=== PATIENT | male | born 1995 | race Caucasian/White ===

== ENCOUNTER 2022-12-28 15:06 | Emergency (ER) | payer MEDICAID, OTHER ==
[~2022-12-28] VITALS: Ht 185.4 cm; Wt 69.0 kg
[2022-12-28] MEDS ORDERED: SODIUM CHLORIDE 0.9% 1,000 ML IV ONE ×3 (15:15→16:30)
[2022-12-28 16:21] LABS: Basophils # (auto) 0 10 ^3/uL (0-0.2); Basophils % (auto) 0.3 % (0.0-2.0); Eosinophils # (auto) 0 10 ^3/uL (0-0.8); Eosinophils % (auto) 0.1 % (0.0-7.0); Hematocrit 49.6 % (41.0-53.0); Hemoglobin 16.1 g/dL (13.5-17.5); Lymphocytes # (auto) 2.5 10 ^3/uL (0.4-5.4); Lymphocytes % (auto) 18.3 % (10.0-50.0); Mean Corpuscular Hemoglobin 34.2 pg (28.0-32.0); Mean Corpuscular Hgb Conc. 32.6 g/dL (32.0-36.0); Mean Corpuscular Volume 105.1 fL (80.0-100.0); Monocytes # (auto) 1.1 10 ^3/uL (0-1.3); Monocytes % (auto) 7.6 % (0.0-12.0); Neutrophils # (auto) 10.2 10 ^3/uL (1.6-8.6); Neutrophils % (auto) 73.7 % (37.0-80.0); Nucleated Red Blood Cells % 0.2 %; Red Blood Cells 4.71 10^6/uL (4.5-5.90); Red Cell Distribution Width 13.3 % (11.8-14.3); White Blood Cell 13.9 10^3/uL (4.4-10.8)
[2022-12-28 16:28] LABS: Albumin 4.7 g/dL (3.4-5.0); Potassium 3.2 mmol/L (3.5-5.1)
[2022-12-28] MEDS ORDERED: LORazepam 2MG/ML-1ML VIAL IV ONE (16:30)
[2022-12-28] MEDS ORDERED: THIAMINE 100mg/ml INJ (200mg/2ml VIAL) IV ONE (16:30)
[2022-12-28 16:31] LABS: Bilirubin, Total 0.8 mg/dL (0.2-1.0); Total Protein 8.8 g/dL (6.4-8.2)
[2022-12-28] MEDS ORDERED: LORazepam 2MG/ML-1ML VIAL IV PRN ×2 (19:00→21:30)
[2022-12-28 21:30] LABS: Urine Bacteria NONE SEEN /hpf (None Seen); Urine Blood 3+ /uL (Negative); Urine Hyaline Cast MOD /lpf (0 - 2); Urine WBC <1 /hpf (0 - 3)
[2022-12-28] MEDS ORDERED: chlordiazePOXIDE HCL 25 MG CAP PO PRN (21:30)
[2022-12-28] MEDS ORDERED: MORPHINE SULFATE INJ 2 MG/ml SYRG IV PRN (21:30)
[2022-12-28] MEDS ORDERED: NITROGLYCERIN 0.4 MG SL TAB SL PRN (21:30)
[2022-12-28] MEDS ORDERED: ONDANSETRON HCL 4 MG/2 ML VIAL IV PRN (21:30)
[2022-12-28] MEDS ORDERED: POTASSIUM CHL 20 Meq TABLET PO ONE (21:30)
[2022-12-28] MEDS ORDERED: TEMAZEPAM 15 MG CAP PO PRN (21:30)
[2022-12-28] MEDS ORDERED: ACETAMINOPHEN 325 MG TAB PO PRN (21:30)
[2022-12-28 21:41] LABS: Amphetamine Screen, Urine NEGATIVE (NEGATIVE); Barbiturate Scree,Urine NEGATIVE (NEGATIVE); Benzodiazephine Screen, Urine NEGATIVE (NEGATIVE); Cannabinoid Screen, Urine POSITIVE (NEGATIVE); Cocaine Screen, Urine NEGATIVE (NEGATIVE)
[2022-12-28 21:51] LABS: Opiate Scree,Urine NEGATIVE (NEGATIVE); Phencyclidine Screen, Urine NEGATIVE (NEGATIVE)
[2022-12-28] MEDS ORDERED: KETOROLAC TROMETH 30 MG/ML 1ML VIAL IV ONE (23:15)
[2022-12-29] MEDS ORDERED: PROPOFOL 10 MG/ML 20 ML IV ONE ×3 (00:30→02:00)
[2022-12-29] MEDS ORDERED: MIDAZOLAM HCL 2MG/2ML 2ml VIAL (1mg/ml) ONE (01:05)
[2022-12-29] MEDS ORDERED: MIDAZOLAM HCL 2MG/2ML 2ml VIAL (1mg/ml) IV ONE (01:06)
[2022-12-29] MEDS ORDERED: ETOMIDATE (2MG/ML) 20ML VIAL IV ONE ×3 (01:11→01:28)
[2022-12-29] MEDS ORDERED: ROCURONIUM 10MG/ML 10ML VIAL IV ONE ×5 (01:11→03:15)
[2022-12-29] MEDS ORDERED: SUCCINYLCHOLINE CHLORIDE 20 MG/ML 10ML VIAL IV ONE ×4 (01:13→02:00)
[2022-12-29] MEDS ORDERED: MIDAZOLAM DRIP 50 mg/50mL 50 ML IV ONE (01:30)
[2022-12-29] MEDS ORDERED: PROPOFOL 100 ML IV ONE (01:37)
[2022-12-29] MEDS: PROPOFOL 100 ML IV SCH ×3 (03:31→13:46)
[2022-12-29] MEDS: MIDAZOLAM DRIP 50 mg/50mL 50 ML IV SCH ×3 (03:32→11:12)
[2022-12-29] MEDS ORDERED: fentaNYL Drip 2500mCg/250mlNS 250 ML IV SCH (05:00)
[2022-12-29 06:20] VITALS: BP 135/86
[2022-12-29 08:10] VITALS: BP 125/75
[2022-12-29 09:59] VITALS: BP 115/72
[2022-12-29 11:42] LABS: BUN/Creatinine Ratio 13.4; Calcium 9.3 mg/dL (8.5-10.1); Potassium 3.2 mmol/L (3.5-5.1)
[2022-12-29] MEDS ORDERED: FOLIC ACID 1 MG, MULTIPLE VITAMIN 10 ML, MAGNESIUM SULF SDV 50% 8 MEQ, THIAMINE INJ 100... INJ SCH ×5 (12:00)
[2022-12-29 12:10] VITALS: BP 112/65
[2022-12-29 13:46] VITALS: BP 113/66
== END 2022-12-29 14:21 | disposition short-term general hospital (02) ==
LOC: ER 15:06 → TELE 21:32 → UNDOADMIN 21:32 → UNDODISIN 12-29 14:21 → TELE 12-29 14:21
DX: F10.129 Alcohol abuse with intoxication, unspecified (principal); Y90.9 Presence of alcohol in blood, level not specified; Z20.822 Contact with and (suspected) exposure to COVID-19
CPT/HCPCS: 36415; 36600; 70140; 70450; 70486; 71045; 80048; 80053; 80307; 81001; 82805; 85025; 87070; 87205; 87426; 93005; 96361; 96374; 96375; 99285; J0330; J1885; J2060; J2250; J2704; J3411; J7030; 94003; A4565; G0378